=== PATIENT | male | born 1960 | race African-American/Black ===

== ENCOUNTER 2020-02-11 08:54 | Inpatient (IN) | payer OTHER ==
[2020-02-11 09:38] LABS: #Eosinphils 0.1 thou/uL (0.0-0.7); #Lymphocytes 1.3 thou/uL (1.20-3.40); #Monocytes 0.7 thou/uL (0.11-0.59); #Neutrophils 7.3 thou/uL (1.40-6.50); %Basophils 0.1 % (0.0-1.0); %Eosinophils 0.9 % (0.0-10.0); %Lymphocytes 13.6 % (21.0-51.0); %Neutrophils 78.4 % (42.0-75.0); Hemoglobin 12.5 g/dL (14.0-18.0); Mean Corpuscular HGB CONC 32.4 g/dL (32.0-36.0); Mean Corpuscular Hemoglobin 27.4 pg (27.0-31.0); Mean Corpuscular Volume 84.6 fL (78.0-98.0); Mean Platelet Volume 9.3 fL (7.4-10.4); Platelet Count 211 thou/uL (130-400); RBC Distribution Width 12.7 % (11.5-14.5); Red Blood Cell (RBC) Count 4.57 mill/uL (4.70-6.10); White Blood Cell (WBC) Count 9.3 thou/uL (4.8-10.8)
[2020-02-11 09:47] LABS: ALT (SGPT) 18 U/L (8-55); AST (SGOT) 18 U/L (5-34); Albumin 4.4 g/dL (3.4-4.8); Alkaline Phosphatase 71 U/L (40-110); Anion Gap 14 mmol/L (10-20); BUN (Urea Nitrogen) 14 mg/dL (8.4-25.7); Bilirubin, Total 0.2 mg/dL (0.2-1.2); Calc. Creatinine Clearance 0 mL/min (70-130); Calcium 9.2 mg/dL (7.8-10.44); Carbon Dioxide 22 mmol/L (23-31); Chloride 105 mmol/L (98-107); Estimated GFR-MDRD 84; Globulin 3.3 g/dL (2.4-3.5); Glucose 128 mg/dL (80-115); Lipase 26 U/L (8-78); Potassium 3.8 mmol/L (3.5-5.1); Protein, Total 7.7 g/dL (5.8-8.1); Sodium 137 mmol/L (136-145)
[2020-02-11] MEDS ORDERED: Ondansetron PF 4 MG/2 ML Vial ONE (10:10)
[2020-02-11] MEDS ORDERED: Fentanyl 100 MCG/2 ML VIAL ONE (10:10)
--- NOTE | 2020-02-11 10:35 | ULT ---
RIGHT UPPER QUADRANT ULTRASOUND CLINICAL HISTORY: Right upper quadrant pain with nausea and vomiting. COMPARISON: None FINDINGS: Liver:Normal echotexture without focal mass. Intrahepatic bile ducts: There is mild intrahepatic biliary ductal dilatation; Common bile duct: Dilated measuring 8 mm. Gallbladder: There are numerous intraluminal gallstones. There is gallbladder wall thickening or dino cholecystic fluid. The gallbladder wall measures 3.6 mm. Salas's sign:None Main portal vein:Patent with hepatopedal flow. Pancreas:Visualized pancreas appears normal. Right kidney: Right kidney measures 10.1 x 4.3 x 4.7 cm. There is a 2.8 cm cyst involving the superio r pole of the right kidney. Additional findings: None. IMPRESSION: Cholelithiasis with gallbladder wall thickening and pericholecystic fluid is suspicious for acute rajni culus cholecystitis. No sonographic Salas's sign is reported however. The common bile duct is dilated measuring 8 mm. Distal obstructing common bile duct stone cannot be entirely excluded. Surgic al consultation is recommended. Recommend consideration for an MRCP evaluation. Right renal cyst
[2020-02-11] MEDS ORDERED: Piperacillin/Tazobactam 4.5 GM VIAL ONE (11:54)
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
[2020-02-11] MEDS ORDERED: Acetaminophen 325 MG TAB PO PRN (15:40)
[2020-02-11] MEDS ORDERED: Ondansetron ODT 4 MG TAB PO PRN (15:40)
[2020-02-11] MEDS ORDERED: Ondansetron PF 4 MG/2 ML Vial IVP PRN (15:40)
[2020-02-11] MEDS: Morphine 4 MG/ML VIAL SLOW IVP PRN ×2 (17:38→21:09)
[2020-02-11] MEDS: cefTRIAXone\\ROCEPHIN 2 GM in Sodium Chloride 0.9% 100 ML IVPB SCH (17:38)
[2020-02-11 18:10] VITALS: BMI 24.3
[2020-02-11] MEDS: metroNIDAZOLE 500 MG in Premix Bag 1 BAG IVPB SCH (20:55)
[2020-02-12] MEDS: Morphine 4 MG/ML VIAL SLOW IVP PRN ×2 (01:30→12:36)
[2020-02-12 05:21] LABS: Bilirubin Negative (Negative); Blood, Urine Negative (Negative); Clarity Clear (Clear); Glucose, Urine (Dipstick) Normal (Negative); Leukocyte Negative Leu/uL (Negative); Nitrite Negative (Negative); Protein, Urine (Dipstick) 10 mg/dL (Neg-Trace); Urobilinogen Normal mg/dL (Less than 2)
[2020-02-12 05:29] LABS: #Eosinphils 0.1 thou/uL (0.0-0.7); #Lymphocytes 1.4 thou/uL (1.20-3.40); #Monocytes 1.1 thou/uL (0.11-0.59); #Neutrophils 8.8 thou/uL (1.40-6.50); %Basophils 0.3 % (0.0-1.0); %Eosinophils 1.1 % (0.0-10.0); %Lymphocytes 12.1 % (21.0-51.0); %Monocytes 9.3 % (0.0-10.0); %Neutrophils 77.2 % (42.0-75.0); Hemoglobin 13.4 g/dL (14.0-18.0); Mean Corpuscular HGB CONC 32.5 g/dL (32.0-36.0); Mean Corpuscular Hemoglobin 27.5 pg (27.0-31.0); Mean Corpuscular Volume 84.8 fL (78.0-98.0); Mean Platelet Volume 8.8 fL (7.4-10.4); Platelet Count 200 thou/uL (130-400); RBC Distribution Width 12.9 % (11.5-14.5); Red Blood Cell (RBC) Count 4.88 mill/uL (4.70-6.10); White Blood Cell (WBC) Count 11.4 thou/uL (4.8-10.8)
[2020-02-12] MEDS: metroNIDAZOLE 500 MG in Premix Bag 1 BAG IVPB SCH ×3 (05:36→21:46)
[2020-02-12] MEDS ORDERED: Ibuprofen 800 MG TAB PO PRN (07:15)
--- NOTE | 2020-02-12 07:18 | PDOC.FM ---
- Subjective Subjective: Pt reports he is comfortable and has no needs right now. Denies nausea, vomiting , fever, or chills. He states he has some abdominal pain worse with movement. - Objective MAR Reviewed: Yes Vital Signs & Weight: Vital Signs (12 hours) Temp Pulse Resp BP Pulse Ox 02/12/20 04:30 98.3 F 83 18 111/72 96 02/12/20 01:14 97 02/12/20 00:40 98.9 F 90 18 139/85 97 02/11/20 19:40 98.7 F 68 18 152/97 H 97 Weight Weight 72.631 kg Result Diagrams: 02/12/20 05:05 02/12/20 06:50 Phys Exam - Physical Examination Constitutional: NAD HEENT: moist MMs Neck: no JVD Respiratory: no wheezing, clear to auscultation bilateral Cardiovascular: RRR, no significant murmur Gastrointestinal: soft, positive bowel sounds RUQ pain with palpation, no signs of peritonitis Musculoskeletal: no edema, pulses present Neurological: moves all 4 limbs Psychiatric: A&O x 3 Skin: cap refill <2 seconds Dx/Plan (1) Acute calculous cholecystitis Code(s): K80.00 - CALCULUS OF GALLBLADDER W ACUTE CHOLECYST W/O OBSTRUCTION Status: Acute (2) HTN (hypertension) Code(s): I10 - ESSENTIAL (PRIMARY) HYPERTENSION Status: Acute - Plan Plan: Acute calculous cholecystitis -Admit to medical -VS and labs stable, no concern for cholangitis at this time -Full liquid diet -Rocephin and metronidazole for abx coverage -Morphine for pain control COVID-19 r/o -Pending labs HTN -Continue home meds Addendum - Attending - Attending Attestation Date/Time: 02/12/20 4567 I personally evaluated the patient and discussed the management with Dr. De Santiago. I agree with the History, Examination, Assessment and Plan documented above with any addition or exceptions noted below. NPO by surgery in case COVID returns today. elevated LFTs concerning for obstructing stone vs developing ascending cholangitis. still TTP RUQ. Will undergo cholecystectomy once COVID results. continue abx and pain control.
[2020-02-12 07:30] LABS: ALT (SGPT) 102 U/L (8-55); AST (SGOT) 106 U/L (5-34); Alkaline Phosphatase 113 U/L (40-110); Anion Gap 12 mmol/L (10-20); BUN (Urea Nitrogen) 11 mg/dL (8.4-25.7); Bilirubin, Total 0.8 mg/dL (0.2-1.2); Calc. Creatinine Clearance 71 mL/min (70-130); Carbon Dioxide 26 mmol/L (23-31); Chloride 100 mmol/L (98-107); Estimated GFR-MDRD 80; Globulin 3.3 g/dL (2.4-3.5); Glucose 112 mg/dL (80-115); Protein, Total 7.3 g/dL (5.8-8.1); Sodium 134 mmol/L (136-145)
[2020-02-12] MEDS ORDERED: SUMAtriptan Succinate 50 MG TAB PO PRN (07:37)
[2020-02-12] MEDS ORDERED: Sildenafil Citrate 20 MG TAB PO PRN (09:00)
[2020-02-12] MEDS: Fish Oil 1,000 MG CAP PO SCH ×2 (09:24→21:45)
[2020-02-12] MEDS: Topiramate 25 MG TAB PO SCH (09:24)
[2020-02-12] MEDS: Lisinopril/Hydrochlorothiazide 10 mg/12.5 mg Tablet PO SCH (09:26)
[2020-02-12] MEDS ORDERED: EPHEDRINE 25 MG/5 ML SYRINGE ONE (10:26)
[2020-02-12] MEDS ORDERED: PHENYLEPHRINE-NS 100 MCG/ML 10 ML SYRINGE ONE (10:26)
[2020-02-12] MEDS ORDERED: Dexamethasone 20 MG/5 ML VIAL ONE (10:26)
[2020-02-12] MEDS ORDERED: Rocuronium Bromide 10 MG/ML (10ML VIAL) ONE (10:26)
[2020-02-12] MEDS ORDERED: Succinylcholine Chloride 20 MG/ML 10 ml SYRINGE FS ONE (10:26)
[2020-02-12] MEDS ORDERED: PROPOFOL 200 MG/20 ML VIAL ONE (10:26)
[2020-02-12] MEDS ORDERED: Lidocaine 1% PF 5 ML VIAL ONE (10:26)
[2020-02-12] MEDS ORDERED: Glycopyrrolate 0.2 MG/ML 5 ML SYRINGE ONE (10:26)
[2020-02-12] MEDS ORDERED: Ketorolac Tromethamine 30 MG/ML VIAL ONE (10:26)
[2020-02-12] MEDS ORDERED: Ondansetron PF 4 MG/2 ML Vial ONE (10:26)
[2020-02-12] MEDS: cefTRIAXone\\ROCEPHIN 2 GM in Sodium Chloride 0.9% 100 ML IVPB SCH (16:14)
[2020-02-12] MEDS ORDERED: Bupivacaine 0.25% HCL 30 ML VIAL ONE (16:19)
[2020-02-12] MEDS ORDERED: Lidocaine 2% w/Epinephrine 1:200K 20 ML VIAL ONE (16:19)
[2020-02-12] MEDS ORDERED: Iothalamate Meglumine 60% 30 ML VIAL FS ONE (16:19)
[2020-02-12] MEDS ORDERED: Fentanyl 100 MCG/2 ML VIAL ONE (16:22)
[2020-02-12] MEDS ORDERED: Sodium Chloride 0.9% 100 ML ONE (16:27)
[2020-02-12] MEDS ORDERED: cefTRIAXone\\ROCEPHIN 2 GM VIAL ONE (16:27)
[2020-02-12] MEDS ORDERED: cefTRIAXone\\ROCEPHIN 1 GM VIAL ONE (16:27)
--- NOTE | 2020-02-12 18:20 | RAD ---
Exam: INTERNAL PROCEDURAL FLUOROSCOPY OF INTRAOPERATIVE CHOLANGIOGRAM: Exposure: 7.97 mCi, 5 seconds FINDINGS: Three intraoperative images demonstrate cannulation of the residual cystic duct. Contrast opacifies t he common bile duct. There is abrupt caliber change involving the distal common bile duct. The visualized common bile duct does appear to be prominent. IMPRESSION: Abrupt caliber change involving the distal common bile duct. Findings are worrisome for a stricture i nvolving the distal common bile duct. Results of study discussed with Dr. Bridges 02/12/2020 at 6:17 PM Code CR Transcribed Date/Time: 02/12/2020 7:17 PM
[2020-02-12] MEDS: Mometasone 200 MCG/Formoterol 5 MCG 120 PUFF INHALER INH SCH (18:45)
[2020-02-12] MEDS ORDERED: traMADol HCl 50 MG TAB PO PRN ×2 (18:53)
[2020-02-12] MEDS ORDERED: Promethazine HCl 25 MG/ML VIAL SLOW IVP PRN (19:09)
[2020-02-12] MEDS ORDERED: PACU-Morphine 4MG/ML VIAL SLOW IVP PRN (19:09)
[2020-02-12] MEDS ORDERED: Promethazine HCl 25 MG/ML VIAL IM PRN (19:09)
[2020-02-12] MEDS ORDERED: Meperidine HCl/PF 25 MG/ML VIAL SLOW IVP PRN (19:09)
[2020-02-12] MEDS ORDERED: Prazosin HCl 1 MG CAP PO SCH (21:00)
[2020-02-12] MEDS ORDERED: Atorvastatin Calcium 20 MG TAB PO SCH (21:00)
[2020-02-12] MEDS ORDERED: Gabapentin 300 MG CAP PO SCH (21:00)
[2020-02-12] MEDS ORDERED: Mirtazapine 30 MG Soltab PO SCH (21:00)
--- NOTE | 2020-02-13 00:33 | OP ---
DATE OF PROCEDURE: 02/12/2020 PREOPERATIVE DIAGNOSES: 1. Acute on chronic cholecystitis with cholelithiasis. 2. Common bile ductal dilatation, rule out common bile duct obstruction. POSTOPERATIVE DIAGNOSES: 1. Acute on chronic cholecystitis with cholelithiasis. 2. Common bile ductal dilatation, rule out common bile duct obstruction. 3. Distal common bile duct stricture. OPERATIONS PERFORMED: 1. Laparoscopic cholecystectomy. 2. Intraoperative cholangiogram. ANESTHESIA: General endotracheal. ESTIMATED BLOOD LOSS: 30 mL. FLUIDS GIVEN: 1450 mL. INDICATIONS FOR OPERATION: A 59-year-old man, presented with recurrent epigastric right upper quadrant abdominal pain. Clinical and radiographic examination was consistent with acute cholecystitis and cholelithiasis. Additionally, the patient was found with dilated common bile duct. LFTs have risen over the last 24 hours. Due to recent history of exposure to COVID-19, test was obtained which was negative. The patient is brought to the operating room today for laparoscopic cholecystectomy with intraoperative cholangiogram. Findings are consistent with markedly distended gallbladder, thick walled, completely encased by omental adhesions. Cholangiogram also revealed distal common bile duct stricture with no common bile duct stones noted. DESCRIPTION OF PROCEDURE: Informed consent was obtained from the patient who was brought to the operating room and placed in supine position. Following general anesthesia, abdomen was sterilely prepped and draped in usual fashion. The skin below the umbilicus was infiltrated with 0.25% Marcaine with epinephrine. A small curvilinear infraumbilical incision was made using 11 scalpel. Umbilical stalk was grasped with Alan and elevated. Veress needle was inserted through the incision and placed in the peritoneal cavity through which the abdomen was insufflated with 3 L of CO2 gas. Intraabdominal pressure was noted at 2 mmHg. Following abdominal insufflation, Veress needle was removed, and a 5 mm trocar introduced using a Visiport under laparoscopy. Laparoscopy confirmed proper placement of the port, no injuries to underlying structures. Additional laparoscopy revealed right upper quadrant completely obscured by omental adhesions. Under direct laparoscopy, a 12 mm epigastric and two 5 mm right lateral subcostal ports were placed after the overlying skin was infiltrated with 0.25% Marcaine with epinephrine and appropriate incision was made. The patient was placed in a reverse Trendelenburg position, rotated to his left. I introduced a [place] dissector with cautery to take down omental adhesions to reveal the fundus of the gallbladder. I attempted to grasp the fundus of the gallbladder with a Prestige grasper. This was thick walled and markedly tense. I therefore decided to decompress the gallbladder. Using an Endo suction catheter with cautery, cholecystotomy was made at the dome of the gallbladder, evacuating excess white bile. Prestige grasper was then introduced through the right lateral subcostal port grasping the fundus of the gallbladder which was elevated cephalad. Peritoneum of the gallbladder was opened at the gallbladder neck. Via blunt dissection, the node of Calot was identified. Cystic duct was then carefully dissected free from surrounding structures. Additionally, the cystic artery was dissected free from surrounding structures. Critical view of the triangle was noted. At this juncture, I applied single clip at the junction of the cystic duct and gallbladder. Cystotomy was made proximal to the securing clip. Cholangiocatheter was introduced in the right upper quadrant, flushed with saline first, then the catheter was inserted into the cystic duct lumen and securing this with a single clip. It was flushed first with saline and then cholangiogram was completed using 30 mL of Conray contrast. Total fluoroscopy time was noted at 49 seconds. Findings were consistent with no common bile duct stones; however, the distal common bile duct appeared to be narrowed as if there is extrinsic compression of the distal common bile duct. There were no intraductal filling defects noted. Following completion of the cholangiogram, the securing clip was removed. Cholangiocatheter was removed from the peritoneal cavity. The cystic duct was then divided between clips applying 2 clips proximally. The cystic artery was divided between clips in a similar fashion. The gallbladder itself was removed from the liver bed using cautery. It was delivered off the abdominal cavity using an EndoCatch. Operative site was inspected for good hemostasis. The clips remained in place. No bile stains present. Finding no other pathology, laparoscopy was terminated. Fascia of the epigastric port was closed using 0 Vicryl suture and Endoclosure device on the laparoscopy. Anteriorly, using 0 Vicryl suture on a UR6 needle, the anterior fascia was also closed using interrupted suture. Abdomen was desufflated. All ports and instruments were removed and accounted for. Skin incisions were closed using 4-0 Monocryl suture in a subcuticular fashion. Dermabond was applied over incisional closure. The patient tolerated the operation without any apparent complication and was returned to the recovery room in satisfactory condition. Job ID: [id number]
[2020-02-13] MEDS: Acetaminophen 325 MG TAB PO SCH ×3 (00:57→12:44)
[2020-02-13] MEDS: metroNIDAZOLE 500 MG in Premix Bag 1 BAG IVPB SCH ×2 (05:41→14:54)
[2020-02-13 05:45] LABS: #Lymphocytes 0.8 thou/uL (1.20-3.40); #Monocytes 0.8 thou/uL (0.11-0.59); #Neutrophils 9.2 thou/uL (1.40-6.50); %Basophils 0.1 % (0.0-1.0); %Eosinophils 0.3 % (0.0-10.0); %Lymphocytes 7.1 % (21.0-51.0); %Monocytes 7.5 % (0.0-10.0); Hemoglobin 11.1 g/dL (14.0-18.0); Mean Corpuscular HGB CONC 32.4 g/dL (32.0-36.0); Mean Corpuscular Hemoglobin 27.7 pg (27.0-31.0); Mean Corpuscular Volume 85.5 fL (78.0-98.0); Mean Platelet Volume 8.4 fL (7.4-10.4); Platelet Count 192 thou/uL (130-400); RBC Distribution Width 12.5 % (11.5-14.5); White Blood Cell (WBC) Count 10.8 thou/uL (4.8-10.8)
[2020-02-13 06:00] LABS: ALT (SGPT) 71 U/L (8-55); AST (SGOT) 59 U/L (5-34); Albumin 3.4 g/dL (3.4-4.8); Alkaline Phosphatase 98 U/L (40-110); Bilirubin, Direct 0.2 mg/dL (0.1-0.3); Bilirubin, Total 0.4 mg/dL (0.2-1.2); Protein, Total 6.6 g/dL (5.8-8.1)
[2020-02-13 06:01] LABS: Anion Gap 14 mmol/L (10-20); BUN (Urea Nitrogen) 17 mg/dL (8.4-25.7); Calc. Creatinine Clearance 63 mL/min (70-130); Calcium 8.2 mg/dL (7.8-10.44); Carbon Dioxide 22 mmol/L (23-31); Chloride 102 mmol/L (98-107); Estimated GFR-MDRD 70; Glucose 118 mg/dL (80-115); Lipase 8 U/L (8-78); Magnesium 2.1 mg/dL (1.6-2.6); Phosphorus 3.3 mg/dL (2.3-4.7); Sodium 134 mmol/L (136-145)
[2020-02-13] MEDS: Mometasone 200 MCG/Formoterol 5 MCG 120 PUFF INHALER INH SCH (07:19)
[2020-02-13] MEDS: Lisinopril/Hydrochlorothiazide 10 mg/12.5 mg Tablet PO SCH ×2 (09:20→09:31)
[2020-02-13] MEDS: Topiramate 25 MG TAB PO SCH (09:21)
[2020-02-13] MEDS: Fish Oil 1,000 MG CAP PO SCH (09:21)
--- NOTE | 2020-02-13 09:40 | PDOC.FM ---
- Subjective Subjective: Pt feeling better, reports only minimal abd pain. no fever/chills - Objective Vital Signs & Weight: Vital Signs (12 hours) Temp Pulse Resp BP Pulse Ox 02/13/20 07:35 97.5 F L 61 18 105/63 95 02/13/20 07:19 83 16 99 02/13/20 03:57 97.4 F L 56 L 18 94/57 L 94 L 02/13/20 00:58 72 18 100/62 96 02/13/20 00:00 97.4 F L 80 18 95/59 L 95 02/12/20 22:50 62 20 100/63 02/12/20 21:50 71 20 108/68 Weight Weight 72.631 kg I&O: 02/12/20 02/13/20 02/14/20 06:59 06:59 06:59 Intake Total 360 Output Total 500 Balance -140 Result Diagrams: 02/13/20 05:24 02/13/20 05:24 Phys Exam - Physical Examination Constitutional: NAD HEENT: moist MMs, sclera anicteric Neck: supple, full ROM Respiratory: no wheezing, clear to auscultation bilateral Cardiovascular: RRR, no significant murmur Gastrointestinal: soft, non-tender Musculoskeletal: no edema, pulses present Neurological: non-focal, normal sensation Psychiatric: normal affect, A&O x 3 Skin: no rash, normal turgor Dx/Plan (1) Cholecystitis Code(s): K81.9 - CHOLECYSTITIS, UNSPECIFIED Status: Acute (2) HTN (hypertension) Code(s): I10 - ESSENTIAL (PRIMARY) HYPERTENSION Status: Acute - Plan Plan: Calculous cholecystitis A- resolved, s/p lap-shyam. Surg on board, appreciate mgmt. P- Rocephin and metronidazole -tramadol and acetaminophen for pain control -dispo per surgery COVID-19 r/o -negative HTN -Continue home meds Addendum - Attending - Attending Attestation Date/Time: 02/13/20 1216 I personally evaluated the patient and discussed the management with Dr. Saul. I agree with the History, Examination, Assessment and Plan documented above with any addition or exceptions noted below. Patient doing well. S/P lap shyam. Awaiting final general surgery recs but hopefully nearing discharge point.
--- NOTE | 2020-02-13 13:52 | PRG ---
DATE OF SERVICE: 02/13/2020 SUBJECTIVE: The patient was seen this morning during rounds. He was sitting up in bed with no signs of acute distress. Physical therapy had come to work with him and he has not yet ambulated. He reported he was tolerating his diet and denied nausea or vomiting overnight. OBJECTIVE: VITAL SIGNS: Temperature 97.9, pulse 67, respirations 18, oxygen saturation 98% on room air, and blood pressure 132/78. GENERAL: Well-appearing middle-aged male, sitting up in bed with no signs of acute distress. PULMONARY: Equal chest rise and fall. Clear breath sounds bilaterally. No signs of acute respiratory distress. CARDIAC: Regular rate and rhythm. GI: Abdomen is soft, nontender, and nondistended. EXTREMITIES: 2+ pulses in all extremities. Gross motor and sensation intact. No significant swelling noted. NEURO: GCS is 15. LABORATORY FINDINGS: White count 10.8, hemoglobin 11.1, hematocrit 34.2, and platelets 192. Sodium 134, potassium 4.0, chloride 102, bicarb 22, BUN 17, creatinine 1.27, glucose 118, total bilirubin 0.4, AST 59, and ALT 71. DIAGNOSTIC FINDINGS: There are no new diagnostic findings to report. ASSESSMENT: Postop day 1 status laparoscopic cholecystectomy with intraoperative cholangiogram due to acute cholecystitis and cholelithiasis. PLAN: The patient was advanced to a regular diet. In the intraoperative cholangiogram report, it stated that there was a common bile duct stricture noted. For this reason, the patient will be asked to see Dr. Felipe in the outpatient setting. He will likely need an MRCP to further evaluate the biliary ductal system and address issues for possible strictures in the future. This referral and followup information were placed in the patient's discharge planning profile along with a followup visit to Dr. Bridges's office on January 24, 2020, at 10:30 a.m. He is to complete a CMP before his followup visit. When he calls office to confirm his appointment, he will be instructed on how to complete his labs. Once the patient is tolerating his diet today, he is free to be discharged per the Primary Service, which the trauma team and Dr. Bridges will continue to follow peripherally until the time of discharge. Please let us know if he have any other questions or concerns. This patient was seen and examined by Dr. Harvey and myself this morning during rounds. Job ID: [id number]
[2020-02-13 16:48] VITALS: BP 115/66; TEMP 99.8
--- NOTE | 2020-02-14 06:59 | PQF ---
Silvio Feldman [place], [place] [id number] CLINICAL DOCUMENTATION CLARIFICATION FORM: POST DISCHARGE Addendum to original discharge summary date: ____ Late entry note date: __ DATE:02/14/2020 ATTN: Suzan Kunz Please exercise your independent, professional judgment in responding to the clarification form. Clinical indicators are provided on the bottom of this form for your review Please check appropriate box(s): [ ] Hyponatremia [ ] Abnormal laboratory findings not clinically significant [ ] Other diagnosis [ ] Unable to determine In addition, please specify: Present on Admission (POA): [ ] Yes [ ] No [ ] Unable to determine For continuity of documentation, please document condition throughout progress notes and discharge summary. Thank You. CLINICAL INDICATORS - SIGNS / SYMPTOMS/ LABS are present in the medical record: Laboratory 02/11 Sodium 134 Laboratory 02/12 -Sodium 134 H&P p1 02/11 Dr Andre presented with CC of RUQ abdominal pain. He states the pain was associated with nausea and vomiting RISK FACTORS H&P p1 02/11 59 year-old Male H&P p1 02/11 HTN Operative report p1 02/10 Acute on chronic cholecystitis with cholelithiasis TREATMENT Operative report p1 02/11 Lap Cholecystectomy Laboratory monitoring Collected 02/11DEC 20 Sodium Chloride 100ml IV (This form is maintained as a part of the permanent medical record) 2014 [employer] All Rights Reserved [email or web address]
--- NOTE | 2020-02-14 23:19 | DIS ---
DATE OF ADMISSION: 02/11/2020 DATE OF DISCHARGE: 02/13/2020 RESIDENT: Chong Saul MD DISCHARGE ATTENDING: Sid Williamson MD CONSULTS: General Surgery, Jeff Bridges DO PROCEDURES PERFORMED: 1. On 02/12/2020, cholecystectomy. 2. On 02/11/2020, abdomen ultrasound. Impression: Cholelithiasis with gallbladder wall thickening and pericholecystic fluid suspicious for acute calculous cholecystitis. No sonographic Salas sign is reported. However, the common bile duct is measured at 8 mm, distal obstructing common bile duct stone cannot be entirely excluded. Surgical consult is recommended. Recommended consideration for an MRCP evaluation. DISCHARGE MEDICATIONS: 1. Budesonide formoterol two puffs inhaled b.i.d. 2. Fish oil. 3. Sumatriptan succinate 100 mg p.o. q.2 hours p.r.n. 4. Simvastatin 40 mg p.o. at bedtime. 5. Sildenafil citrate 100 mg p.o. p.r.n. 6. Omeprazole 20 mg p.o. daily. 7. Lisinopril hydrochlorothiazide 10-12.5 mg tab, one tablet p.o. daily. 8. Ibuprofen 800 mg p.o. t.i.d. p.r.n. 9. Gabapentin 600 mg p.o. at bedtime. 10. Sertraline 200 mg p.o. daily. 11. Prazosin 2 mg p.o. at bedtime. 12. Mirtazapine 30 mg p.o. at bedtime. 13. Topiramate 25 mg p.o. daily. 14. Tramadol 50 mg p.o. q.6 hours p.r.n. 30 tablets. DISCONTINUED MEDICATIONS: None. PRIMARY DIAGNOSIS: Calculous cholecystitis. SECONDARY DIAGNOSIS: Hypertension. HISTORY OF PRESENT ILLNESS/HOSPITAL COURSE: This is a 59-year-old male, who presented to the emergency department with abdominal pain. Ultrasound revealed evidence of cholecystitis, which did not show clear evidence for stones. Plans were made for cholecystectomy. However, patient required testing for COVID before surgery could be accomplished and so COVID-19 swab was performed. Once it came back negative, the patient was taken back for laparoscopic cholecystectomy. The patient was found to have cholecystitis with gallstones and so the gallbladder was taken out. There was also found through cholangiography that the patient had a common bile duct stricture. The patient tolerated surgery well and pain improved after surgery with pain controlled with Tylenol, acetaminophen and tramadol alone and so, the patient was discharged with instructions to follow up with PCP regarding his common bile duct stricture as he will likely require GI consult for further evaluation and management of this. DISPOSITION: Stable. DISCHARGE INSTRUCTIONS: 1. Location: Home. 2. Activity: As tolerated. 3. Followup: Follow up with Jeff Bridges on 02/23/[address] Jose Felipe and with primary care provider in 10 days. 4. Diet: Advance as tolerated. Job ID: [id number]
--- NOTE | 2020-02-15 15:19 | EKG ---
Test Reason : Blood Pressure : / mmHG Vent. Rate : 068 BPM Atrial Rate : 068 BPM P-R Int : 166 ms QRS Dur : 082 ms QT Int : 400 ms P-R-T Axes : 037 026 049 degrees QTc Int : 425 ms Normal sinus rhythm Minimal voltage criteria for LVH, may be normal variant Borderline ECG Confirmed by KAREN ZHANG M.D. ([id number]), index editor BERNARDINO PRIETO ([id number]) on 02/15/2020 3:19:09 PM Referred By: Confirmed By:KAREN ZHANG M.D.
== END 2020-02-13 16:17 | disposition home or self-care (01) | DRG 419 ==
LOC: ERS 08:54 → SDC 12:27 → T4-A 16:31
PROVIDERS: ADMIT Surgery; ATTEND Surgery
PROC: 8E0ZXY6 Isolation (ICD-10-PCS; 2020-02-11)
PROC: 0FT44ZZ Resection of Gallbladder, Percutaneous Endoscopic Approach (ICD-10-PCS; principal; 2020-02-12)
PROC: BF131ZZ Fluoroscopy of Gallbladder and Bile Ducts using Low Osmolar Contrast (ICD-10-PCS; 2020-02-12)
DX: K80.13 Calculus of gallbladder with acute and chronic cholecystitis with obstruction (principal); Z20.828 Contact with and (suspected) exposure to other viral communicable diseases; I10 Essential (primary) hypertension; Z79.899 Other long term (current) drug therapy
CPT/HCPCS: 36415; 47532; 76705; 80048; 80053; 80076; 81003; 83605; 83690; 83735; 84100; 85025; 85610; 86850; 86900; 86901; 87635; 87804; 88304; 93005; 96361; 96374; 96375; J0696; J1100; J1610; J1885; J2001; J2270; J2405; J2543; J2704; J3010; J3490; S0020; U0002